=== PATIENT | male | born 1985 | race African-American/Black ===

== ENCOUNTER 2018-07-31 08:22 | Emergency (ER) | payer OTHER ==
[2018-07-31] MEDS ORDERED: IBUPROFEN 600 MG TAB PO ONE (08:30)
--- NOTE | 2018-07-31 09:20 | EDPHY ---
General Time Seen by Provider: 07/31/18 09:14 Narrative: CHIEF COMPLAINT: Sprained my ankle HISTORY OF PRESENT ILLNESS: Patient presents with complaints of ankle sprain. He states that he was taking his child school when he inverted his left ankle. He notes significant pain and swelling on the lateral compartment of the ankle. No heel pain. No knee or proximal fibular pain. He did not fall or strike the leg. He has moderate to severe pain that limits his ability to walk. Radiates into the ramos. No numbness or tingling. No weakness but no footdrop. No other associated complaints or modifying factors. ESTABLISHED ORTHOPEDIST: None REVIEW OF SYSTEMS: Ten systems reviewed and are negative unless otherwise noted in the HPI PAST MEDICAL HISTORY: Uncomplicated PAST SURGICAL HISTORY: No recent surgical history SOCIAL HISTORY: Nonsmoker. Lives and works here independently FAMILY HISTORY: Noncontributory EXAMINATION: General Appearance: Alert, no distress Cardiovascular: Symmetric DP PT pulses 2+. Brisk cap refill in the left foot. Neurological: A&O, light sensory symmetric in lower extremities, ankle and great strength symmetric Skin: Warm and dry, no rash. No petechiae. No purpura. No ecchymosis. No laceration or puncture Extremities: Moderate edema and tenderness of the the left ankle, lateral greater than medial. There is no instability. No midfoot tenderness on the left. No calcaneus tenderness on the left. No tenderness of the left proximal fibula. Range of motion of the left ankle is limited but he does retain dorsiflexion and plantar flexion. Minimal inversion. Range of motion of the knees symmetric. All compartments are soft on the lower extremities. Psychiatric: Mood and affect normal DIFFERENTIAL DIAGNOSES: Including but not limited to sprain, strain, fracture, dislocation, subluxation , DVT, compartment syndrome MDM: 9:15 a.m. Acute ankle sprain left with no fracture on x-ray. He is neuro intact distally. No signs of compartment syndrome or DVT. His ankle is quite swollen , thus I ordered only in Cj wrap and crutches. I do not feel he tolerated the stirrup or Brady boot at this time. We discussed weight-bearing as tolerated. We discussed ice, elevation anti-inflammatories. We discussed short course of pain medication. I have also provided the on-call orthopedist for him. I have answered all his questions. ED precautions discussed. Discharged home stable condition When I signed up for the patient, he had been in the department for 52 min with x-ray of the ankle artery performed SUPERVISION: This patient was independently evaluated without direct involvement of or examination by the attending physician. I did prescribe pain medication for this patient. Prior to doing so, I did obtain a [facility] [place] [facility] report as required. - History Smoking Status: Current some day smoker - Objective Vital Signs: Initial Vital Signs Temperature (C) 97.9 F 07/31/18 08:27 Heart Rate 85 07/31/18 08:27 Respiratory Rate 18 07/31/18 08:27 Blood Pressure 137/98 H 07/31/18 08:27 O2 Sat (%) 98 07/31/18 08:27 O2 Delivery Mode Room Air Allergies/Adverse Reactions: No Known Allergies Allergy (Verified 07/31/18 08:27) Home Medications: Medication Instructions Recorded Hydrocodone/APAP 5/325 [Wild Rose 1 - 2 tab PO Q4H PRN #5 tab 07/31/18 5/325 (*)] Medications Given: Discontinued Medications Ibuprofen (Motrin) 600 mg PO EDNOW ONE Stop: 07/31/18 08:31 Last Admin: 07/31/18 08:33 Dose: 600 mg Departure - Departure Disposition: Home, Routine, Self-Care Clinical Impression: Moderate ankle sprain Qualifiers: Encounter type: initial encounter Laterality: left Qualified Code(s): S93.402A - Sprain of unspecified ligament of left ankle, initial encounter Condition: Good Instructions: Ankle Sprain (ED) Additional Instructions: 1. Medications as discussed as needed, including ibuprofen 600mg every 8 hours as needed. Do not take in conjunction with anticoagulants or other NSAIDs 2. Follow up with Orthopedics for definitive care 3. Rest, ice and elevation often. 4. ED precautions as discussed for worsening pain, redness, fever, changes in range of motion, changes in sensation 5. Weightbearing as tolerated Referrals: Dena Harris MD [Primary Care Provider] - As per Instructions Michael Pa MD [Medical Doctor] - As per Instructions Prescriptions: Hydrocodone/APAP 5/325 [[place] 5/325 (*)] 1 - 2 tab PO Q4H PRN #5 tab PRN Reason: Pain, Moderate
[2018-07-31 09:58] VITALS: BP 121/103
== END 2018-07-31 09:57 | disposition home or self-care (01) ==
DX: S93.402A Sprain of unspecified ligament of left ankle, initial encounter (principal); X50.0XXA Overexertion from strenuous movement or load, initial encounter; Y93.01 Activity, walking, marching and hiking; Y92.9 Unspecified place or not applicable; Y99.8 Other external cause status